=== PATIENT | male | born 1955 | race African-American/Black ===

== ENCOUNTER 2018-11-10 16:34 | Inpatient (IN) | payer OTHER ==
[~2018-11-10] VITALS: Ht 188 cm; Wt 89.8 kg
[~2018-11-10 16:34] MED LIST: AMLODIPINE BESY10 MG PO; ARICEPT 5 MG TAB5 MG PO; ASPIR 8181 MG PO; BUSPIRONE HCL10 MG PO; GEODON20 M1 IM; HYDROCHLOROTH12.5 M1 PO; LIPITOR10 MG PO; LISINOPRIL40 MG PO; MIRALAX17 GM PO; RISPERDAL 1 MG T1 MG PO; SEROQUEL 50 MG50 MG PO; VITAMIN B122500 MC1 PO; VITAMIN D3400 UNIT PO
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
[2018-11-10 21:52] VITALS: BP 94/55
[2018-11-11 03:46] VITALS: BP 94/55
--- NOTE | 2018-11-11 04:20 | NUR ---
RECEIVED REPORT FROM OFFGOING DAY NURSE, ASSUMED CARE @ 19:30. REFUSING VS AND COMBATITIVE WHEN REDIRECTED OUT OF OTHER PATIENTS ROOMS. NEW ORDER FOR 1:[address] CLEMETN. ORDER FOR IM THORAZINE 25 MG. FOLLOW UP VS 94/55 80 18 97.8 96% @ 22:15.
--- NOTE | 2018-11-11 06:50 | NUR ---
SLEPT 6.4 HOURS
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
[2018-11-11 23:25] VITALS: BP 103/64
[2018-11-12 09:51] VITALS: BP 116/70
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
--- NOTE | 2018-11-12 11:43 | NUR ---
HE IS ALERT AND UNKNOW ORIENTATION DUE TO HIS BEHAVIORS, HE IS AMBULATORY AND HAS BEEN WALKING THE HALLS, HE IS PRETTY MUCH ONOT RESPONDING VERBALLY, HE DOES ANSWER WHEN HIS ATTENTION IS CAPTURED, VERY SOFT WHISPER WHEN ASKED IN PAIN HE STATED NO, ASKED IF HE WAS HUNGRY HE STATED YES, AND WAS ESCORTED TO THE TABLE WHEN HE ATE HIS FOOD WITH HIS FINGERS, HE HAS EXIBITED NO AGGRESSIVE BEHAVIORS THIS A.M., CURRENTLY IN BED SLEEPING, HE DID TAKE ALL MORNING MEDS CRUSHED IN PUDDING. CONTINUE TO MONITOR FOR BEHAVIORS AND SAFETY, HE IS 1:1 OBSERVATION WHILE AWAKE.
[2018-11-12 19:59] VITALS: BP 122/71
[2018-11-13 00:36] VITALS: BP 122/71
--- NOTE | 2018-11-13 03:34 | NUR ---
PT OUT IN DAYROOM, WANDERING AND INVASIVE WITH OTHER PTS. NEEDS 1:1 OBSERVATION WHILE AWAKE. TOOK HS MEDS CRUSHED IN JELLY, FOLLOWED WITH WATER. SLEPT WELL UNTIL 314, INCONTINENT OF URINE. ASSISTED WITH SHOWER, AND LINEN CHANGED. NON VERBAL, BUT IS REDIRECTABLE. AFTER SHOWER, RETURNED TO BED AND IS CURRENTLY RESTING QUIETLY.
[2018-11-13 11:25] VITALS: BP 100/67
--- NOTE | 2018-11-13 11:27 | NUR ---
SPENDS MOST OF AM PACING IN DAYROOM OR HALLWAYS-WILL OCCASSIONALLY SAY 0NE OR TWO WORDS OTHERWISE IS NON-VERBAL. DOES BECOME AGITATED WITH ATTEMPTS TO GET BP AND TO CHANGE BRIEF HE WILL GRAB STAFFS HANDS AND SQUEEZE OR FORCABLY TAKE HOLD OF STAFFS ARM AND REFUSE TO LET GO. BP INITALLY THIS AM DOCUMENTED 170/100 PRIOR TO BP MEDS AND PT WAS RESISITNG-FLEXING ARM,MOVING ARM. AFTER AM MEDS BP RECHECK AT APPROX 1015 AND BP IS 100/64 P 93
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
[2018-11-14 09:53] VITALS: BP 116/60
--- NOTE | 2018-11-15 05:02 | NUR ---
Care assumed of patient at 1915: Patient resting in bed at start of shift. Patient laying in bed quietly with 1:1 sitter at bedside. Patient easily arousable. Patient looks up at nurse, smiles, nods head. No aggression or agitation observed this shift. Patient declined HS snack. Patient drank 240cc water with HS medication crushed in pudding. Patient non-verbal at this time. Hx: CVA with left sided hemiparesis. Incontinent of bladder. Requires total assist with toileting needs. Patient alert to name. Patient appeared to be resistive initially when provided his HS medication. Education provided regarding medication, then patient accepted medication without difficulty. Patient has been resting quietly in bed with no s/s of distress observed or reported this shift.
--- NOTE | 2018-11-15 13:37 | NUR ---
APPROACHED WITH AM MEDICATIONS AT APPROX. 1000 -MEDS CRUSHED AND IN PUDDING-PT REFUSES TO OPEN MOUTH OR SPITS THEM BACK OUT AT THIS NURSE. NON-VERBAL. ON 1;1 AMBULATED TO DAYROOM AND PICKED UP A CUP OF WATER AND THREW IT ON OTHER PATIENTS IN THE DINING ROOM-RESISITVE WITH GOPING TO ROOM. THORAZINE 25MG GIVEN IM IN LVG AREA 2WITH ASSISTANCE OF SECURITY
--- NOTE | 2018-11-16 05:01 | NUR ---
ASSUMED CARE OF PATIENT AT APPROXIMATELY 1915. THIS NURSE HAD VERY LITTLE INTERACTION WITH PATIENT, SOON THIS NURSE ASSUMED CARE PATIENT WENT TO HIS ROOM AND LAYED DOWN AND CLOSED HIS EYES. HE DID NOT APPEAR TO BE IN DISTRESS, NO FACIAL GRIMACING OBSERVED, REACTED TO TOUCH, EYES OPENED SPONTANEOUSLY TO THIS WRITERS SPEECH. CONTINUED TO MONITOR THROUGHOUT SHIFT WITH NO S/S OF DISTRESS.
[2018-11-16 07:45] VITALS: BP 110/68
[2018-11-16 10:29] VITALS: BP 110/68
--- NOTE | 2018-11-16 14:12 | NUR ---
PER REPORT PATIENT WAS SLEEPING, AND AT ABOUT 1335HRS, [facility] REPORTS THAT PATIENT EYES WAS ROLLING BACK TO HIS HEAD, AND PATIENT DROOLING . BLOOD PRESSURE TAKEN WITH RESULT OF 70/50. DR. CLEMENT PRESENT, CALLED DR. STARK, ORDER FOR SODIUM CHLORIDE 500 BOLUS NOTED, ATTEMPT X 2 TO START IV FAILED DUE TO PATIENT RESISTING IV ACCESS. IV TEAM GAINED ACCESS TO RIGHT ARM. AFTER RESTRAINT APPLIED. IV INFUSING AT 100ML/HRS. BLOOD PRESSURE RECHECKED AT 1415 HOURS WITH RESULT 89/60. SOFT RESTRAINT IN PLACE TOO STELLA UPPER EXTREMITY FOR IV FLUID INFUSION. PATIENT CURRENTLY IN SLEEPING, STAFF SITTING AT BED SIDE, WILL MONITOR FOR SAFETY.
[2018-11-16 19:51] VITALS: BP 128/80
--- NOTE | 2018-11-17 00:52 | NUR ---
Care assumed of patient at 1915: Patient alert and oriented to person only. Patient primarily non-verbal, mumbles at times. Patient remains 1:1 for safety of patient and peers. Patient has been wandering about the unit and in other peer rooms. Patient requiring frequent re-directions. No s/s of pain or discomfort observed. Patient took HS medication crushed with pudding without difficulty. Patient ate 100% snack with staff assist. Patient incontinent of bladder. Resistant on staff assist with ADL completion. Patient grabbed staff and started to pinch staff once when trying to be directed to his room. Another staff member stepped in which was successful in helping complete toileting needs. Patient was attempting to pick up attendant something from the floor a couple times which was not visible by staff. Appears to be having visual hallucinations. Patient had more difficulty falling asleep this evening than previous 2 nights. BP has remained stable. Fluids encouraged.
[2018-11-17 07:58] VITALS: BP 132/81
--- NOTE | 2018-11-17 12:33 | NUR ---
Date of Admission: 11/10/18 Date of Activity Therapy Assessment: 11/13/18 Activity Goal: Decrease wandering/increase stimulation Initial Goal: 1 Group activity/day or 1:1 as needed Weekly progress towards goal: Did not achieve goals Group participation level: None Behaviors observed: Patient has been on one to one monitoring since admission d/t aggressive behaviors and poor boundaries in the milieu. Patient tolerated one to one activity on 11/17. Exhibits flat affect and poor direction following. Plan: Offer one to one activities daily.
--- NOTE | 2018-11-17 13:42 | NUR ---
HAS BEEN AMBULATING IN HALLWAYUS AND IN DAYROOM THIS AM-DID APPROACH FEMALE PEER IN DAYROOM AND REACH FOR HER WITH ANGRY FACIAL EXPRESSION BUT STAFF WERE ABLE TO INTERVENE BEFORE HE REACHED PATIENT
[2018-11-17 19:31] VITALS: BP 105/67
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
[2018-11-18 09:16] VITALS: BP 131/85
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
[2018-11-19 09:00] VITALS: BP 133/88
--- NOTE | 2018-11-19 17:06 | NUR ---
UP PACING THE HALLS, HE STILL IS COMBATIVE WHEN ATTEMPTING TO PROVIDE CARES, HE IS INCONTINENT OF BOTH BOWEL AND BLADDER, ALTHOUGH HE WAS TAKEN AND USED THE COMMODE FOR A BM TODAY, HE WAS GOING TO SIT DOWN FOR BREAKFAST AND SAT ON THE EDGE AND DID NOT GET SET AND SLIPPED OFF THE CHAIR LANDING ON THE FLOOR ON HIS BUTTOCKS, HE GOT UP AND NO SIGN OF INJURY, AND PHYSICIAN WAS NOTIFIED, HE IS COOPERATIVE WITH MEALS AND MEDICATIONS TODAY, HAS NOT REQUIRED PRN MEDICATIONS. CONTINUE TO MONITOR HIS BEHAVIORS AND FOR SAFETY.
[2018-11-20 00:38] VITALS: BP 111/73
--- NOTE | 2018-11-20 03:35 | NUR ---
PATIENT GIVEN PRN CHLORPROMAZINE 25MG IM FOR SEVERE AGITATION AT 1999 LAST NIGHT. PATIENT CONTINUES TO PACE BUT WAS ENTERING OTHER PATIENT'S ROOMS, SQUEEZING CAREGIVER'S HANDS AND TRYING TO BREAK FINGERS OF STAFF. AGITATED AND SWINGS AT OTHERS WHEN TRYING TO WORK WITH HIM OR REDIRECT HIM. PATIENT SLEPT FOR A FEW HOURS AND IS NOW BACK UP AND DOING THE SAME THINGS. HE IS NOT REDIRECTABLE AND IS PACING AND TRYING TO PULL HIS PANTS DOWN IN DINING ROOM. STAFF AND ME WALKED HIM TO HIS ROOM TO HAVE HIM USE THE RESTROOM BUT PATIENT REFUSED TO GO INTO HIS ROOM OR BATHROOM. PULLED HIS PANTS UP AND HE CONTINUED TO PACE AND REACHES OUT TO GRAB MY HAND AND THEN SQUEEZES IT AND TWISTING HAND. I WAS ABLE TO BREAK AWAY. HE HAS INTENSE ANGER GLEAR HE WALKS AROUND. DISTURBING PATIENT'S IN THE DR BY TRYING TO PULL BLANKETS OFF OF THEM AND TAKING THEIR BELONGINGS. SCARING OTHER FEMALE PATIENTS. PATIENT REMAINS 1:1 WHILE AWAKE. CHLORPROMAZINE 25MG IM GIVEN AGAIN 329.
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
--- NOTE | 2018-11-20 08:37 | NUR ---
PT GRABBING AT STAFF AND PULLING STAFF DOWN TO FLOOR, PT SITTING ON FLOOR. PT ASSISTED BACK UP TO STANDING AND PUT IN RECLINER. ADM CHLORPROMAZINE 25MG IM FOR AGITATION.
[2018-11-20 08:45] VITALS: BP 134/79
--- NOTE | 2018-11-20 08:53 | NUR ---
WHEN AWAKE PT WONDERS IN HALLS OR SITS IN RECLINER CHAIR. PT NEEDS ASSIST WITH ADL'S WHEN TOILETING. PT SLEEPING WITH HEAD DOWN IN DINNING ROOM. SITTER 1:1 CARE WHILE AWAKE. PT LUNGS CLEAR. ABD ROUND WITH BOWEL SOUNDS.
[2018-11-20 09:38] VITALS: BP 134/79
--- NOTE | 2018-11-20 10:43 | NUR ---
Assess due to length of stay, pt admit to [facility] with vascular dementia, combativess. Hx CVA in 2014. Tolerating diet, provided with finger foods, eating 50-100%. Overweight status, BMI 28.9 and wt up 2 lb from admit. No new nutrition interventions. Low nutrition risk
--- NOTE | 2018-11-20 17:57 | NUR ---
PT HAS BEEN COOROPERATIVE THIS AFTERNOON. PT LAYING IN RECLINER WHILE EATING DINNER. PT NON-VERBAL. FACE SEEMS RELAXED LATELY.
[2018-11-20 20:53] VITALS: BP 139/89
--- NOTE | 2018-11-21 02:50 | NUR ---
WANDERING AROUND UNIT ON 1:1 OBSERVATION. CONFUSED BUT DIRECTABLE. ESCORTED TO ROOM FOLLOWING HS SNACKS. SLEPT UNTIL 0100. UP IN DAYROOM, SITTING AT TABLE, AND DOZING PERIODICALLY. INCONTINENT X1 DURING THE NIGHT. CHANGED BUT DID NOT WANT TO RETURN TO ROOM.
--- NOTE | 2018-11-21 08:30 | NUR ---
PT UP SITTING IN DINNING ROOM. PT HAS 1:1 CARE FOR SAFETY. PT ABLE TO FEED SELF WITH FINGER FOODS. PT NON-VERBAL. FLAT AFFECT IN FACE. PT LUNGS CLEAR. PT HAS BRIEF ON. WHEN AWAKE PT LIKES TO WALK AROUND THE UNIT AND HOLD HANDS WITH STAFF.
[2018-11-21 20:06] VITALS: BP 143/82
--- NOTE | 2018-11-22 00:08 | NUR ---
Care of patient assumed at 1915: Patient alert and oriented to person. Confused and forgetful. Patient sitting in recliner at start of shift with 1:1 sitter next to him. Patient ate 100% HS snack. Mumbled speech noted with some clear, audible speech. Patient took HS medication crushed without difficulty. Patient pleasant and cooperative during nursing assessment. No s/s of pain or discomfort. No s/s of AH/VH, delusions or paranoia observed. Patient assisted to bed with staff assist x3. Patient had an incontinent episode of bladder. Patient provided max assist to transfer to his bed. Patient did not want his soiled brief and pants removed. Patient attempted to grab pants so they could not be changed. Patient was able to be re-directed then he assisted by standing and allowing staff to change clothing without any verbal or physical aggression. Patient was then assisted to lay down in bed. He then stated "good night" and was able to fall asleep without any difficulty.
[2018-11-22 09:05] VITALS: BP 150/77
--- NOTE | 2018-11-22 11:02 | NUR ---
TRIALED OFF OF 1;1 THIS AM AND APPROX 15 MINUTES AFTER BEING OFF 1;1 GRABBED A FEMALE PEER BY THE NECK FOR NO APPARENT REASON IN DAYROOM- STAFF SITTING WITH FEMALE PEER INTERVENED IMMEDIATLY PREVENTING INJURY-REQUIRES ASSIST OF THREE TO 4 STAFF TO CHANGE BRIEF WHEN INCONTINENT. VS WNL
[2018-11-22 20:44] VITALS: BP 146/73
[2018-11-23 01:08] VITALS: BP 146/73
--- NOTE | 2018-11-23 02:31 | NUR ---
PATIENT SAT UP IN DINING ROOM RECLINER THIS EVENING. AT ONE POINT HE DOZED OFF AND AWOKE SUDDENLY AND WAS ANGRY AND PUNCHING AND COMBATIVE. CHLORPROMETHAZINE PRN IM GIVEN TO PATIENT. PATIENT HAD EARLIER TAKEN HIS HS MEDS CRUSHED IN [place]URT WITHOUT PROBLEM. PATIENT CALMED BACK DOWN ONCE THE PRN WAS ON BOARD AND THEN BECAME LOUD AND COMBATIVE WHEN PUTTING HIM IN BED. PATIENT REMAINS 1:1 WHILE AWAKE. HE HAS BEEN NONVERBAL TONIGHT. PATIENT IS SLEEPING AT THIS TIME. FREQUENT ROUNDING TO CHECK ON HIM. BED IN LOW POSITION AND BED ALARM ON.
[2018-11-23 11:04] LABS: HEMOGLOBIN 12.3 gm/dL (14.0-18.0); MCH 29.4 pg (26.0-34.0); MCHC 31.7 g/dL (28.0-37.0); MCV 92.9 fL (80.0-100.0); RBC 4.19 mil/uL (4.50-6.00); RDW 14.7 % (10.5-14.5); WBC 7.7 thou/uL (4.0-11.0)
[2018-11-23 11:22] LABS: ALBUMIN 3.3 g/dL (3.4-5.0); CALCIUM 9.1 mg/dL (8.5-10.1); CREATININE 0.8 mg/dL (0.7-1.3); MAGNESIUM 1.8 mg/dL (1.8-2.4); POTASSIUM 3.7 mmol/L (3.5-5.1); TOTAL BILIRUBIN 0.3 mg/dL (<0.1-1.0); TOTAL PROTEIN 6.6 g/dL (6.4-8.2)
--- NOTE | 2018-11-23 12:55 | NUR ---
HAS REMAINED ON 1;1 SO FAR THIS RCACT-HSV-[id number]. STRIKES OUT WITH CARES,BRIEF CHANGE ETC. AMBULATES SHORT DISTANCES IN HALLWAYS AND TOLERATES THIS ACTIVITY WELL WITHOUT ASSISTIVE DEVICES.
--- NOTE | 2018-11-24 00:34 | NUR ---
Care assumed of patient at 1915: Patient seated in recliner at start of shift. Patient is no longer on 1:1 while awake. Staff monitor q12 minutes and PRN for safety. Patient compliant with nursing assessment. Alert and oriented to name. Confusion and forgetfulness noted. No s/s of AH/VH, delusional or paranoia observed. Took HS medication crushed without difficulty. Declined HS snack. No s/s of pain or discomfort observed. Patient somewhat resistant when be assisted to bed. No physical or verbal aggression observed at this time. Patient has been pleasant and cooperative. Patient resting quietly in bed at this time.
[2018-11-24 09:15] LABS: HEMATOCRIT 40.6 % (42.0-52.0); MCH 29.8 pg (26.0-34.0); MCV 92.9 fL (80.0-100.0); RBC 4.38 mil/uL (4.50-6.00); RDW 14.8 % (10.5-14.5); WBC 8.7 thou/uL (4.0-11.0)
[2018-11-24 09:29] LABS: CALCIUM 9.5 mg/dL (8.5-10.1); CREATININE 0.8 mg/dL (0.7-1.3); POTASSIUM 3.5 mmol/L (3.5-5.1)
[2018-11-24 11:01] VITALS: BP 160/87
[2018-11-24 11:36] VITALS: BP 160/87
--- NOTE | 2018-11-24 12:56 | NUR ---
0715 report from overnight staff. 07 patient in wheel chair by staff, patient appetite good. Patient took medication without incident. Patient did not participate in group, patient non verbal due to history of cva. Patient had no interaction with other patients. Patient did not display any aggression at this time. Patient takes medication crushed in applesauce. Patient tried to get out of chair slow motion. Patient tried to pull down pant in day room, patient redirected not to do this.
--- NOTE | 2018-11-24 15:27 | NUR ---
Date of Admission: 11/10/18 Date of Activity Therapy Assessment: 11/13/18 Activity Goal: Decrease wandering Initial Goal: 1 Individual activity/day Weekly progress towards goal: Did not achieve goals Group participation level: None Behaviors observed: Patient no longer has a 1:1 sitter but does not have the focus/attention span to participate in structured groups. Patient sleeps during most 1:1 attempts. Plan: Continue to offer 1:1 activities daily.
--- NOTE | 2018-11-24 15:38 | NUR ---
SW called and spoke to admissions at [facility] of [place] [phone] amnd they agreed to come out and evaluate this pt early next week for possible placement
[2018-11-24 19:38] VITALS: BP 152/97
--- NOTE | 2018-11-25 00:04 | NUR ---
Care assumed of patient at 1915: Patient alert and oriented to person. Patient sitting in recliner at start of shift. Patient having mumbled speech which is baseline for this patient. Patient confused and forgetful. Patient took HS medication crushed without difficulty. Ate 100% HS snack. No outbursts or aggression observed. Patient walked to his room to assist him get ready for bed. Patient somewhat resistive with toileting hygiene. Staff x2 assist used for safety. No s/s of AH/VH, paranoia or delusional behaviors observed. Patient sat from recliner and watched other people. Patient compliant with nursing assessment. Patient touched nurses hand at one point and wanted to hold hands for a couple minutes. When nurse stated she needed to go, patient let go and stated "bye". Patient was able to fall asleep without any difficulties and has been resting quietly since.
[2018-11-25 06:44] LABS: HEMATOCRIT 42.2 % (42.0-52.0); HEMOGLOBIN 13.8 gm/dL (14.0-18.0); MCH 29.7 pg (26.0-34.0); MCHC 32.6 g/dL (28.0-37.0); MCV 91.3 fL (80.0-100.0); RBC 4.63 mil/uL (4.50-6.00); RDW 14.3 % (10.5-14.5); WBC 10.9 thou/uL (4.0-11.0)
[2018-11-25 06:57] LABS: CALCIUM 9.3 mg/dL (8.5-10.1); CREATININE 0.8 mg/dL (0.7-1.3); POTASSIUM 3.5 mmol/L (3.5-5.1)
[2018-11-25 09:31] VITALS: BP 138/91
--- NOTE | 2018-11-25 15:26 | NUR ---
JOHN called and spoek with admissions at [facility] and they will be coming out on Tuesday to eval this pt. [phone], and will send updates on Tuesday PM [phone].
--- NOTE | 2018-11-25 15:30 | NUR ---
JOHN called and spoke with noman- and she is expecting JOHN to find him a place to d/c to.
--- NOTE | 2018-11-25 15:46 | NUR ---
EPISODES OF RESTLESSNESS THROUGHOUT SHIFT-ATEMPTING TO GET UP FROM CHAIR AND OR WC WITHOUT ASSIST. IS OBSERVERED TO BE MORE ATAXIC THIS AM-LEANING BACKWARD-ALSO WILL AMBULATE SHORT DISTANCE WITH NURSING STAFF AND THEN ABRUPTLY ATTEMPT TO SIT DOWN WITH NO CHAIR BEHIND HIM AND NO WARNING. REQUIRES ASSIST OF 2-3 STAFF TO STAND BACK UPRIGHT.NON-VERBAL. WILL EAT IF FED BY STAFF- TAKES MEDS CRUSHED AND IN YOGURT- NO NOTED OR REPORTED PAIN/DISCOMFORT-FACIAL GRIMACING ETC. DOES ATTEMPT TO STRIKE OUT AT STAFF WITH BRIEF CHANGE/PERINEAL CARE.
[2018-11-25 20:40] VITALS: BP 130/79
[2018-11-26 00:06] VITALS: BP 130/79
--- NOTE | 2018-11-26 04:32 | NUR ---
PT UP IN DAYROMM EARLY IN THE SHIFT. DROWSY, BUT ALLOWED STAFF TO ASSESS, AND TAKE VS. TOOK HS MEDS AFTER SNACKS. BECAME SOMEWHAT COMCATIVE WHEN PREPARED FOR BED. TOOK 3 STAFF TO GET HIM TO BED. ONCE SETTLED, PT HAS SLEPT WELL THROUGH THE NIGHT TO THIS POINT IN THE AM.
[2018-11-26 07:00] VITALS: BP 120/75
--- NOTE | 2018-11-26 17:17 | NUR ---
PT A&O TO SELF. AMBULATES WITH SLOW UNSTEADY GAIT. IMPULSIVE WILL NOT SIT IN HIS CHAIR FOR A LENGTH OF TIME BUT THEN WILL SIT AND FALL ASLEEP FOR PERIODS OF TIME. CONFUSED THOUGH IS BEING BEING MORE VERBAL THAN WHEN HE ARRIVED. PT APPEARED DROWSEY MOST OF THE DAY. EATS 50% OF MEALS OR MORE.
[2018-11-26 20:46] VITALS: BP 117/80
[2018-11-26 23:07] VITALS: BP 117/80
--- NOTE | 2018-11-27 04:20 | NUR ---
PT OUT IN DAY ROOM. QUIET AND COOPERATIVE. ESCORTED TO BED AFTER HS SNACKS AND MEDS. TOOK MEDS CRUSHED WITH PUDDING W/O PROBLEM. HAS SLEPT WELL THROUGH THE NIGHT TO THIS POINT.
[2018-11-27 08:01] VITALS: BP 157/95
[2018-11-27 12:58] VITALS: BP 122/72
--- NOTE | 2018-11-27 12:59 | NUR ---
REMAINS NON-VERBAL SO FAR THIS SHIFT-DID UNDO LAP BELT AND WAS FOUND WALKING ON OWN IN DINING ROOM- OBSERVED TO BE ATAXIC-STUMBLING WITH BACKWARD LEANING STANCE/POSTURE-ASSISTED BACK TO RECLINER WITH SBA X 1 AND WAS REISSITIVE WITH THIS PULLING AWAY FROM STAFF-TUGGING ON STAFF ARMS,ANGRY FACIAL EXPRESSION-HOWEVER WITH MULTIPLE ATTEMPTS,VERBAL AND PHYSICAL QUEING DID EVENTUALLY COMPLY. INITITAL BP ELEVATED THIS AM DOCUMENTED 157/95-PARISH RECHECK BY THIS RN AFTER AM MEDS IS 122/72-SMALL SOFT BM-RESISITVE WITH PERINEAL CARE BUT NO ACTUAL STRIKING OUT
--- NOTE | 2018-11-27 13:09 | NUR ---
followup 11/27: remains on finger foods, regular diet. Eating 25-85% of meals. Nonverbal. Wt is down 5 lb over 2 weeks/2% which is not significant but continue to monitor as intake is variable. Remains low nutrition risk
--- NOTE | 2018-11-27 17:55 | NUR ---
JOHN recieved a notice that [facility] would not be reconsidering this pt.
[2018-11-27 19:43] VITALS: BP 126/75
[2018-11-28 01:11] VITALS: BP 126/75
--- NOTE | 2018-11-28 01:16 | NUR ---
PATIENT SAT UP IN RECLINER IN DAYROOM THIS EVENING. HE WOULD NOT EAT HIS SUPPER AND REFUSED AN HS SNACK. PATIENT HAS LAP TERESO ON. HE IS CALM, COOPERATIVE, AND SLEEPY. PATIENT WAS TAKEN TO BED TO SLEEP LATER THIS EVENING. HE IS INCONTINENT AND IS CHECKED Q 2 HOURS. PATIENT DRY AT THIS POINT. BED IN LOW POSITION AND BED ALARM ON. DENIES PAIN. WILL CONTINUE TO MONITOR.
[2018-11-28 09:10] VITALS: BP 124/67
--- NOTE | 2018-11-28 13:31 | NUR ---
INCREASE IN RESTLESSNESS THIS AM HAS BEEN ATTEMPTING TO GET UP AND WALK ON OWN SEVERAL TIMES STUMBLING AND ALMOST FALLING IN DAYROOM- LEANING BACKWARD AND WILL ATTEMPT TO SIT WITH NO CHAIR BEHIND HIM. INCREASED VERBALIZation but STATEMENTS ARE NON-GOAL DIRECTED-WORD SALAD
[2018-11-28 20:15] VITALS: BP 184/114
[2018-11-29 01:10] VITALS: BP 148/82
--- NOTE | 2018-11-29 01:34 | NUR ---
PATIENT UP IN THE DINING ROOM SITTING IN RECLINER. PATIENT IS COOPERATIVE. HE IS A LITTLE MORE VOCAL TODAY AND DID SAY HE WANTED ICECREAM FOR HIS SNACK. HE DENIES PAIN. HIS BP WAS SHOWING HIGH NUMBERS AT 184 SYSTOLIC. RECHECKED HIS BP AND TEMP AND BP IS NOW DOWN TO 130/74 AND TEMP IS 98.8. PATIENT IS A HEAVY ASSIST OF 3 PEOPLE. WENT TO PUT PATIENT DOWN FOR BED AND HE WAS ADAMANT THAT HE WANTED TO STAY UP. PATIENT IS STILL SITTING UP IN RECLINER IN THE DINING ROOM. HE DENIES PAIN AND HAS HAD BRIEFS CHANGED. PATIENT IS A/O TO SELF. HE IS LESS SLEEPY WITH MED ADJUSTMENTS. PATIENT IS PULLING HIMSELF BACKWARDS WHEN HE STANDS MORE NOW AND NOT KEEPING HIS BALANCE WELL. HE HAD ICECREAM FOR HS SNACK TONIGHT. HE TAKES HIS PILLS CRUSHED IN ICECREAM. PATIENT PLEASANT AND COOPERATIVE.
--- NOTE | 2018-11-29 15:56 | NUR ---
Care assumed of patient at 0715: Patient alert to name. Disoriented to current place, time and situation. Patient confused and forgetful. Patient has slurred and mumbled speech. No s/s of pain or discomfort observed. Patient seated in recliner throughout the shift. Requires max to total assist with toileting, eating and ADL completion. Patient took medication crushed without difficulty. Patient was up attempting to ambulating with PT. Patient continues to lean back and has difficulty initiating stepping with his left foot. Patient incontinent of bowel and bladder. No aggression or agitation observed. No s/s of delusional or paranoia behaviors. Patient has been calm and sleepy this shift.
--- NOTE | 2018-11-29 16:33 | NUR ---
SW sent new referrals for placement to : [facility], [facility], [place] , [facility], and [facility]. [facility] is unable to accept due to payor source.
[2018-11-29 16:36] VITALS: BP 141/99
[2018-11-29 19:45] VITALS: BP 111/72
[2018-11-30 00:57] VITALS: BP 111/72
--- NOTE | 2018-11-30 01:01 | NUR ---
PATIENT UP IN DINING ROOM THIS EVENING BEFORE BED. PATIENT TOOK MEDS WITH APPLESAUCE. PATIENT WAS FED ICECREAM AND APPLESAUCE FOR HS SNACK. PATIENT WAS WHEELED TO BED. HE IS A HEAVY ASSIST OF 3 TO 4. HE DOES NOT HELP WITH TRANSFERS. PATIENT WAS INCONTINENT WHEN GETTING READY FOR BED AND PATIENT CLEANED AND NEW LINEN CHANGE OF BED. PATIENT NOT TALKING MUCH TONIGHT. HE WAS GIVEN TRAZADONE 25 MG THAT APPEARS TO BE EFFECTIVE. PATIENT DENIES PAIN. PATIENT IN LOW BED WITH BED ALARM ON AND ROUTINE CHECKS.
[2018-11-30 09:00] VITALS: BP 162/99
--- NOTE | 2018-11-30 16:00 | NUR ---
SW recieved notice that [facility], and [facility] in declining this pt
[2018-11-30 18:00] VITALS: BP 121/71
--- NOTE | 2018-11-30 19:18 | NUR ---
PT ALERT TO SELF ONLY. NON VERBAL. PT UP SITTING IN THE DINNING ROOM IN THE CHAIR FOR MOST OF THE SHIFT. PT CALM AND COOPERATIVE. BP ELEVATED THIS MORNING MEDICATIONS GIVEN BP NOW 121/71. PT TOLERATES MEDS AND MEALS. PT DOES NOT APPEAR TO BE IN ANY PAIN. WILL CONTINUE TO MONITOR.
[2018-11-30 21:07] VITALS: BP 121/87
--- NOTE | 2018-12-01 07:19 | NUR ---
The pt. was med.compliant last nite, slept well tonite. At bedtime he was an assist of 2, but this morning was notably proud that he stood up with standby assist when getting out of bed,with a bright affect. He was not aggressive and used fall prevention measures.
--- NOTE | 2018-12-01 08:00 | NUR ---
Assumed care of patient this am from manufacturing supervisor 2nd shift. Patient calm and content. Patient sitting in reclining chair for assessment. Patient vital signs stable. Breath sounds clear and diminished in the bases. Heart tones present s1 and s2. Bowel sounds present, hypo. Patient took am medications crushed in apple sauce. Patient adherent with scheduled medications. Patient shaved this afternoon.
[2018-12-01 08:09] VITALS: BP 159/93
[2018-12-01 09:30] VITALS: BP 159/93
--- NOTE | 2018-12-01 14:01 | NUR ---
Date of Admission: 11/10/18 Date of Activity Therapy Assessment: 11/13/18 Activity Goal: 1 group or one to one Initial Goal: Decrease wandering behaviors Weekly progress towards goal: Did not achieve goals Group participation level: None Behaviors observed: Patient has exhibited aggressive or wandering behaviors since previous note entry. Patient is often drowsy during group times and though present at times, does not participate actively. Plan: No change towards goal
--- NOTE | 2018-12-01 16:08 | NUR ---
Sw sent referrals to [facility] ( was denied there) RW denied placement too , [facility] per family request, and meft a VM at [facility] to f/u.
[2018-12-01 19:29] VITALS: BP 195/105
[2018-12-02 01:36] VITALS: BP 195/105
--- NOTE | 2018-12-02 03:58 | NUR ---
PT RESTING IN RECLINER AT [facility] OF SHIFT. AFTER SNACKS TOOK HS MEDS , CRUSHED WITH PUDDING, W/O PROBLEM. ESCORTED TO BED,BED CLOTHING CHANGED AND PT TUCKED INTO BED. RESTLESS FOR A SHORT PERIOD, BUT WENT TO SLEEP,AND HAS SLEPT WELL W/O INCIDENT THROUGH THE NIGHT TO THIS POINT.
[2018-12-02 07:07] VITALS: BP 139/78
--- NOTE | 2018-12-02 18:18 | NUR ---
PATIENT ORIENTED TO SELF AND IN RECLINER CHAIR MOST OF THE DAY IN DINING AREA. PATIENT NEEDS ASSISTANCE TO FEEDING. SPOUSE CALLED TO CHECK ON PATIENT. PATIENT MOSTLY NON-VERBAL AND DOESN'T INTERACT WITH OTHER PATIENTS OR STAFF.
[2018-12-02 19:59] VITALS: BP 141/91
--- NOTE | 2018-12-03 04:52 | NUR ---
1909-Report received from day shift nurse and care assumed. Kaiden was sitting in the day area, was med.compliant, then assisted to bed and has slept well this night.
[2018-12-03 07:53] VITALS: BP 144/84
--- NOTE | 2018-12-03 14:07 | NUR ---
Has been in recliner chair most of morning, he is very lethargic, somwhat arousable, he has refused to eat any meal so far except for maybe 1 or 2 bites, he has not had any fluids today either, he did attempt to stand and is unable to stand by himself, he is max assist with standing and ambulating, when attempting to get him to his room he just sat on the floor, we did get him up and finished the trip, he is incontinent of bowel and bladder, was changed after sitting on toilet, I did notice alot of excessive tongue rolling and movement, we placed him in bed where he is currently sleeping.
[2018-12-03 19:55] VITALS: BP 185/97
--- NOTE | 2018-12-04 03:21 | NUR ---
PATIENT ASSESSED AND IS ALERT X 1. HAS BEEN LETHARGIC ON RN ARRIVAL DURING ASSESSMENT. SITTING IN CHAIR IN DINNING ROOM. DOES NOT TALK MUCH. UNABLE TO WALK AND STAND, IS A 3 PERSON MAX ASSIST. MED CRUSHED AND PATIENT TAKEN THEM WELL. PLACED TO BED FOR HS. INCONT OF BOWEL AND BLADDER. HAD A INCONT LARGE BM. SKIN CONDITION GOOD. NEEDS HELP IN FEDING AND PREPARING HIS TRAY. SKIN COLOR WNL. DOES NOT APPEAR IN PAIN. SITS IN W/C MOST OF THE TIME . BED ALARM AND CHAIR ALARM IN USE. PATIENT REFUSED TO EAT TODAY, DIET IS [facility] SOFT FOOD. CONT PLANOF CARE. NO S/S OH AH/VH OBSERVED.
[2018-12-04 06:14] LABS: HEMATOCRIT 43.7 % (42.0-52.0); HEMOGLOBIN 14.1 gm/dL (14.0-18.0); MCH 29.8 pg (26.0-34.0); MCHC 32.2 g/dL (28.0-37.0); MCV 92.6 fL (80.0-100.0); RBC 4.72 mil/uL (4.50-6.00); RDW 14.8 % (10.5-14.5); WBC 13.4 thou/uL (4.0-11.0)
[2018-12-04 06:31] LABS: CALCIUM 9.3 mg/dL (8.5-10.1); CREATININE 0.9 mg/dL (0.7-1.3); POTASSIUM 3.5 mmol/L (3.5-5.1)
[2018-12-04 09:29] VITALS: BP 153/97
--- NOTE | 2018-12-04 16:31 | NUR ---
JOHN sent referrals to [facility] of [facility], and he was declined by them.
[2018-12-04 17:40] LABS: URINE BILIRUBIN NEGATIVE (Negative); URINE BLOOD 2+ (Negative); URINE CLARITY CLEAR; URINE COLOR YELLOW; URINE GLUCOSE-RANDOM* 2+ (Negative); URINE KETONES TRACE (Negative); URINE LEUKOCYTES-REFLEX NEGATIVE (Negative); URINE NITRITE-REFLEX NEGATIVE (Negative); URINE PROTEIN (DIPSTICK) TRACE (Negative); URINE SPECIFIC GRAVITY 1.025 (1.005-1.035)
[2018-12-04 18:01] LABS: CASTS None Seen /LPF (None Seen); CRYSTALS None Seen /LPF (None Seen); SQUAMOUS 0-3 Few /LPF (0-3)
[2018-12-04 18:02] LABS: BACTERIA-REFLEX 1-9 Few /HPF (None Seen); TRANSITIONAL EPITHEL CELL 0-3 Few /LPF (None Seen); URINE RBC 3-10 Few /HPF (0-2); URINE WBC-REFLEX 0-5 Rare /HPF (0-5)
--- NOTE | 2018-12-04 18:21 | NUR ---
PATIENT UP IN CHAIR IN DINING ROOM SITTING IN RECLINER TODAY. PATIENT DROWSY. PATIENT NOT EATING WELL OR CHEWING. NEW ORDERS FOR PUREED FOOD. PATIENT NEW ORDER FOR ST EVAL AND TREAT D/T COUGHING WHEN DRINKING THIN LIQUIDS. ABNORMAL LABS CALLED TO DR CLEMENT AND HOSPITALIST THRU DR Velasco SPOKE WITH FEMALE HOSPITALIST (UNSURE OF NAME) AND SHE STATES THAT PATIENT ABNORMAL LABS ARE SHOWING DEHYDRATION. UA DONE AND SENT TO LAB BY DR CLEMENT. AWAITING RESULTS. PATIENT'S DAUGHTER CAME TO VISIT HIM TODAY. PATIENT CONTINUES TO BE INCONTINENT. PATIENT DOES NEED TO BE FED. PATIENT RESTING IN BED AT THIS TIME. HIS APPETITE IS POOR AT ABOUT 25% FOR ALL MEALS. PATIENT CARE TECHNICIAN AWARE OF THIS.
[2018-12-04 19:15] VITALS: BP 175/93
--- NOTE | 2018-12-04 22:51 | NUR ---
ASSUMED CARE @ 19:15 ON 12/04/18. MEDS GIVEN CRUSHED IN PUDDING WITH NECTAR THICK BEVERAGE. WILL CONTINUE TO MONITOR Q 12 MINUTES FOR PATIENT SAFETY.
[2018-12-05 00:21] VITALS: BP 175/93
[2018-12-05 09:01] VITALS: BP 155/89
[2018-12-05 10:44] LABS: CALCIUM 9.7 mg/dL (8.5-10.1); CREATININE 1.1 mg/dL (0.7-1.3); POTASSIUM 3.7 mmol/L (3.5-5.1)
--- NOTE | 2018-12-05 13:13 | NUR ---
PATIENT HAS BEEN UP AND OUT ON THE UNIT SITTING IN A GERICHAIR MOST OF THE DAY. PATIENT WAS ASSISTED WITH MEALS BY STAFF, CONSUMED 100% OF BREAKFAST, REFUSED TO EAT LUNCH. PATIENT TOOK MORNING MEDICATION CRUSHED IN PUDDING WITHOUT DIFFICULTY. PATIENT IS UNABLE TO RESPOND APPROPRIATELY TO ASSESSMENT QUESTIONS DUE TO COGNITIVE IMPAIREMENT. PATIENT IS VERY CONFUSED. NO AGGRESION OR AGITATION NOTED. PATIENT TAKING INTERMITTENT NAP, WILL MONITOR FOR SAFETY.
[2018-12-05 21:25] VITALS: BP 151/93
[2018-12-05 22:21] VITALS: BP 138/82
--- NOTE | 2018-12-05 22:27 | NUR ---
PATIENT IN BED WITH HIS HEAD AT THE BOTTOM OF THE BED AND FEET AT THE TOP. PATIENT DOES NOT HELP IN TRANSFERRING OR WITH CARES. HE IS COMBATIVE WITH INCONTINENCE CARES AND REPOSITIONING. PATIENT IS ABLE TO TURN HIMSELF AND DOES BUT JUST DOES NOT HELP WHEN OTHERS ARE WORKING WITH HIM. PLACED HOB UP 45 DEGREE ANGLE. HE TOOK HIS MEDS CRUSHED IN PUDDING. PATIENT IS ALERT AND DID DRINK 120CC OF THICKENED WATER TONITE WITH HIS PUDDING. PATIENT'S TONGUE IS MOIST BUT DISCOLORED TO YELLOW/BROWN. UNSURE IF THIS IS OLD FOOD SITTING ON TONGUE OR FUNGAL INFECTION BEGINNING. PATIENT DOES HAVE A CHERIE ODOR TO HIM. HIS GLUCOSE LEVELS ARE UP ALSO TO 365. HOSPITALIST ARE AWARE OF THIS PER REPORT. SPOKE WITH DR ROSALINDA SHRESTHA YESTERDAY MORNING REGARDING HIS LABS. BED IN LOW POSITION AND ALARM ON. CONTINUING TO MONITOR. ENCOURAGED TO PUSH FLUIDS. BED IN LOW POSITION AND ALARM ON.
--- NOTE | 2018-12-06 03:54 | NUR ---
PATIENT SLEPT SOME IN BED BUT WAS RESTLESS AND MOVING ALOT. HE SAT UP ON HIS SIDE AND WAS TRYING TO GET LEGS OUT OF BED. GOT PATIENT BRIEF CHANGE AND UP IN RECLINER CHAIR TO MAIN DINING ROOM AT 0330. GAVE PATIENT THICKENED WATER TO DRINK AND HE DRANK 3 OF THEM SO FAR FOR TOTAL OF 360. PLUS I GAVE HIM 240 WITH HIS PILLS. HE IS HOLDING THE CUP TONITE AND GIVING IT TO HIMSELF. HE HAD NOT BEEN DOING THAT EARLIER IN THE EVENING. PATIENT SEEMS MORE ALERT. HE EVEN ASSISTED AT 0330 IN STANDING HIM UP. HE HAS NOT BEEN DOING THAT BEFORE. HE WAS DOING SOME MOVEMENTS WITH HIS MOUTH WHEN WE GOT HIM UP THAT LOOKED LIKE TARDIVE DYSKINESIA BUT AFTER SITTING UP AND DRINKING SOME WATER FOR A BIT THIS SEEMED TO GO AWAY. STILL MONITORING FOR IT. PATIENT IS SMILING A LITTLE MORE TONIGHT AND APPEARED HAPPY WHEN WE PRAISED HIM ON HIS STANDING WHEN WE ASSISTED HIM TO CHAIR. PATIENT CALM AND SITTING IN DINING ROOM FOR NOW.
[2018-12-06 08:00] VITALS: BP 144/84
--- NOTE | 2018-12-06 08:00 | NUR ---
Assumed care of patient this am from shift supervisor melting. Patient neat and relaxed laying in recliner. Patient was spitting his food out this am. Patient was adherent with medications crushed in applesauce for RN. Assessment-breath sounds clear and diminished in the bases. Bowel sounds present. Patient would answer simple questions occasionally but not consistently.
[2018-12-06 08:55] VITALS: BP 144/84
[2018-12-06 09:49] LABS: HEMATOCRIT 43.5 % (42.0-52.0); HEMOGLOBIN 13.9 gm/dL (14.0-18.0); MCH 29.7 pg (26.0-34.0); MCV 92.8 fL (80.0-100.0); RBC 4.68 mil/uL (4.50-6.00); WBC 12.6 thou/uL (4.0-11.0)
[2018-12-06 10:34] LABS: ABSOLUTE NEUTROPHILS 8.6 thou/uL (1.4-8.2)
[2018-12-06 10:35] LABS: PLATELET COUNT 179 thou/uL (150-400); PLATELET ESTIMATE NORMAL
[2018-12-06 20:31] VITALS: BP 155/89
--- NOTE | 2018-12-07 05:07 | NUR ---
1909-Report received from day shift nurse and care assumed. Kaiden was combative with ADL's in the evening in his bed where he was resting. He required 2 staff assist with ADL care. He was med. compliant then slept off and on in the nite, fidgety at times also but slept some hours. This morning he was assisted with his ADL's and up for the day in the recliner. He had a smile when standing up with assist for transfer. He answered questions this morning, smiling again, answered yes and no. He was not combative with cares except in the evening time as stated above.
[2018-12-07 07:53] VITALS: BP 123/76
--- NOTE | 2018-12-07 13:20 | NUR ---
DID TAKE AM MEDS CRUSHED AND IN PUDDING. LETHARGIC-RESTING FOR SHORT INTERVALS IN RECLINER IN DAYROOM SO FAR THIS SHIFT. INCONTINENT OF VERY LARGWE LOOSE STOOL-REQUIRED ASSIST OF 4 STAFF TO CHANGE BRIEF,PROVIDE PERINEAL CARE AND BARRIER CREAM. WAS A COMPLETE LIFT WHEN ASSISTED INTO BED.
--- NOTE | 2018-12-07 13:36 | NUR ---
HAS BEEN NON-VERBAL SO FAR THIS SHIFT-DID LAY DOWN IN PM -APPETITE POOR AND REQUIRES FEEDING-TAKES PO FLUIDS POORLY D/T SEDATION. DENIES C/O PAIN WHEN ASKED-WILL OPEN EYES TO VERBAL STIMULI-WILL OCCASSIONALLY FOLLOW VERBAL COMMANDS WHEN REPEATED MULTIPLE TIMES BUT RESPONSE TIME-MOVEMENTS VERY DELAYED/SLOW
--- NOTE | 2018-12-07 13:43 | NUR ---
SW sent referrals for pt to [facility], [facility], and [facility]. SW team will continue to follow pt during his stay.
[2018-12-07 19:42] VITALS: BP 165/75
--- NOTE | 2018-12-08 04:26 | NUR ---
ASSUMED CARE @ 19:15 ON 12/07/18, PT IN RECLINER, EYES CLOSED, RESPIRATIONS EVEN AND UNLABORED. GIVEN HS MEDS CRUSHED IN PUDDING. PT DRANK HONEY THICKENED LIQUID READILY. TRANSFERRED TO BED X 2 ASSIST. SLEPT IN BED ALL NOC, GIVEN INCONTINENT CARE @ 03:30, WILL CONINTINUE TO MONITOR Q 12 MINUTES FOR PATIENT SAFETY. BED IN LOW POSITION, BED ALARM SET.
[2018-12-08 04:31] VITALS: BP 165/75
--- NOTE | 2018-12-08 06:23 | NUR ---
SLEPT 7 HOURS OVERNIGHT
[2018-12-08 07:45] VITALS: BP 135/76
--- NOTE | 2018-12-08 14:59 | NUR ---
Date of Admission: 11/10/18 Date of Activity Therapy Assessment: 11/13/18 Activity Goal: Decrease wandering/Increase engagement Initial Goal: 1 Individual activity/day Weekly progress towards goal: Did not achieve goals Group participation level: Minimal Behaviors observed: Patient continues to show no behaviors. His level of alertness has decreased since last entry. Patient does not verbalize or show emotion when interacted with on a one to one basis. Plan: No change towards goal
[2018-12-08 23:00] VITALS: BP 162/108
--- NOTE | 2018-12-09 02:24 | NUR ---
ASSUMED CARE FROM DAY SHIFT PT UP IN RECLINCER CHAIR CALM COOPERATIVE, NON-VERBAL, PT DID TAKE MEDICATION WITH ICE CREAM. PT SLEPT FOR 2-3 HOURS THEN CONTINUE TO CLIMB OUT OF BED PT THEN PLACED IN RECLINCER AND MOVED TO DAY ROOM, PT AWAKE ,SITTING CALMY IN CHAIR. WILL TRY TO GET PT BACK TO BED.
[2018-12-09 06:34] VITALS: BP 164/90
--- NOTE | 2018-12-09 07:30 | NUR ---
Assumed care of patient this am from cage shift manager. Patient sitting in reclining chair resting quietly. Patient sometimes responds to yes and no questions but usually says very little. Patient neat and clean. Patient breath sounds clear and diminished in the bases. Bowel sounds present. Patient took medications crushed in applesauce.
[2018-12-09 08:00] VITALS: BP 139/78
[2018-12-09 09:12] VITALS: BP 139/78
[2018-12-10 01:04] VITALS: BP 154/86
--- NOTE | 2018-12-10 03:09 | NUR ---
ASSUMED CARE ON 12/09/18 @ 19:15. SITTING RECLINED IN DELTA CHAIR. WHEN ASKED QUESTIONS, WILL RESPOND WITH A SHORT ANSWER, USUALLY YES OR NO. TOOK HS MEDS CRUSHED IN APPLESAUCE, WITH HONEY THICK LIQUIDS, WHICH HE DRANK READILY. HAD A LARGE INCONTINENT BM THIS EVENING. PALLATIVE CARE STARTED 12/08. TRANSFERS FROM DELTA CHAIR TO WHEEL CHAIR TO BED X 2 ASSIST. ABLE TO STAND AND WALK A FEW FEED, HOWEVER DOES NOT PIVOT WELL. PRN TRAZADONE 25 MG GIVEN @ HS. PATIENT SLEPT WELL AT [facility]. BED IN LOW POSITION, BED ALARM SET, WILL CONTINUE TO MONITOR Q 12 MINUTES FOR PATIENT SAFETY.
--- NOTE | 2018-12-10 06:00 | NUR ---
slept 8 hours overnight
[2018-12-10 09:55] VITALS: BP 154/86
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
[2018-12-10 12:50] VITALS: BP 130/84
[2018-12-10 20:15] VITALS: BP 150/100
[2018-12-10 20:30] VITALS: BP 156/120
--- NOTE | 2018-12-11 02:01 | NUR ---
Care assumed of patient at 1915: Patient alert and oriented to person. Patient seated in w/c at start of shift at dining table. Ate 100% HS snack with total assist. Took HS medication crushed without difficulty. Patient had mumbled speech, occasional smile, calm and cooperative. Patient assisted to bed. Patient incontinent of bowel and bladder at that time. Suzi care completed, barrier cream applied. Patient woke up approximately 1 hour later and was incontinent of bowel and bladder again. Suzi care provided and barrier cream applied. Patient appeared restless at that time. Patient checked after approximately 45 minutes and he had been incontinent of a large amount of urine. Urine red in color at that time. Patient appeared more restless, holding self over in position, eyes wide open, facial grimacing. Suzi care completed and patient assisted to recliner for re-positioning. Patient had required max assist x2 with standing and transfers earlier in the evening. This time, patient stood up with stand by assist, initiated multiple steps, speaking clear words but speech was disorganized. Patient appeared to be in pain. Patient stated "yes" when asked if he was in pain but no other questions could be answered by patient. AMANDA Jean notified. Order obtained for straight cath and collection of UA. Catheter drained approximately 50cc, red colored urine, small red blood clots present. Patient provided PRN Tylenol PO. UA sent to lab. Patient is now sitting quietly in recliner in day room. Patient awake but is not as restless as previously. Patient did grab staff hands while catheter being placed but it is believed to be due to possible pain, not out of aggression.
[2018-12-11 02:23] LABS: URINE BILIRUBIN NEGATIVE (Negative); URINE BLOOD 3+ (Negative); URINE GLUCOSE-RANDOM* 3+ (Negative); URINE KETONES NEGATIVE (Negative); URINE LEUKOCYTES TRACE (Negative); URINE NITRITE POSITIVE (Negative); URINE PROTEIN (DIPSTICK) 2+ (Negative); URINE UROBILINOGEN 0.2 E.U./dl (0.2-1.0)
[2018-12-11 02:42] LABS: URINE COLOR RED
[2018-12-11 02:43] LABS: URINE CLARITY CLOUDY
[2018-12-11 02:48] LABS: CASTS None Seen /LPF (None Seen); MUCUS None Seen strn/LPF (None Seen); SQUAMOUS 0-3 Few /LPF (0-3); URINE WBC >25 Many /HPF (0-5)
[2018-12-11 02:49] LABS: BACTERIA 1-9 Few /HPF (None Seen); CRYSTALS None Seen /LPF (None Seen)
[2018-12-11 02:52] LABS: URINE RBC >20 Many /HPF (0-2)
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
[2018-12-11 08:00] VITALS: BP 125/82
[2018-12-11 10:02] VITALS: BP 125/82
[2018-12-11 20:30] VITALS: BP 145/90
--- NOTE | 2018-12-12 00:35 | NUR ---
Care assumed of patient at 1915: Patient alert to person. Patient seated at dining table in a dining chair at start of shift. Patient up ambulating without assistive devices. Patient appeared restless. Patient wandering the halls. No s/s of pain or discomfort. Upon assessment, patient had been incontinent of bowel and bladder. Patient taken to the bathroom where adrian care was provided and linens changed. Patient somewhat resistive but only required staff assist x1 for toileting needs. Patient did hold on to nurses wrists while completing cares. Patient had to be told over and over that he was being changed. Patient is slow to process and requires time to comprehend what is said. Patient forgetful and needs information re-iterated several times. Urine appears pink in color. Currently receives abx tx PO for the dx of UTI. Consulted with pharmacist that capsule of Cefdinir could be opened for administration. Pharmacist reported that it could be opened and mixed with food to administer. Patient took HS medication crushed without difficulty. Patient ate 100% HS snack with total assist. Patient did smile back at nurse several times. Occasional clear words were spoken, otherwise mumbled speech. Patient needed re-direction to stay out of other peers rooms. Patient did not like this and would grunt and hold nurses wrists/hands. Required re-direction to let go of nurse which he did without issue. No s/s of delusional or paranoia behaviors. No s/s of AH/VH. Gait unsteady at times, will hold on to grab rails while ambulating. Enjoyed sitting with other peers to eat snack. Patient did try to hug and kiss nurse hazel. Required re-direction and was given a high-five instead. Patient saw another nurse that he recognized and attempted to go see this nurse. Gave a good handshake and smiled. Nurse administered PRN Trazodone for insomnia due to his restless behaviors. Patient was able to be assisted to bed without difficulty and has been resting quietly since.
[2018-12-12 09:08] VITALS: BP 123/72
--- NOTE | 2018-12-12 09:58 | NUR ---
0715: Report rec from [facility] shift, care assumed. 1830-2008: To DR via recliner/w/c, alert, makes eye contact to name, no verbalization noted, staff feeds a.m. meal, appetite good, tolerates pureed diet and thickened liquids w/o difficulty. Attends 0900 therapy group, unable to participate due to cognitive impairment. Takes meds whole/crushed in pudding, tolerates well. Miralax held dur to loose stools 2-3/day, abd soft, bowel sounds active x4 quads.
--- NOTE | 2018-12-12 12:31 | NUR ---
JOHN received information from SW team stating that [facility] is considering admitting pt. JOHN contacted Brielle in admissions to give her information about pt. Based off the information given, Brielle suggested that pt go to the secure unit. She asked JOHN fax pt's H&P with his history of neurological concerns. JOHN faxed the document to the fax number given by Brielle of [phone]. JOHN team will continue to follow pt during his stay
[2018-12-12 20:00] VITALS: BP 121/86
--- NOTE | 2018-12-13 00:16 | NUR ---
Pt sitting up in jessi chair watching tv in day room. Pt compliant with meds and hs snack. Pt compliant with adl incontinence care. Pt not assisting with transfers while moving from chair to bed. New orders obtained for haldol and nystatin thrush on tongue.
--- NOTE | 2018-12-13 04:16 | NUR ---
Pt awakened twice and redirected to sleep.
--- NOTE | 2018-12-13 07:30 | NUR ---
Assumed care of patient this am. Patient in bed sleeping. Patient arouseable with verbal stimulation. Patient affect somewhat tense during assessment. Vital signs stable, breath sounds clear and diminished in the bases. Bowel sounds present. Patient moved to wheel chair from bed. Patient is able to stand with assistance. Patient on thickened liquids and takes medications crushed in pudding. Patient adherent with medications this am.
[2018-12-13 08:00] VITALS: BP 153/80
[2018-12-13 11:17] VITALS: BP 153/80
[2018-12-13 20:11] VITALS: BP 144/85
--- NOTE | 2018-12-13 23:21 | NUR ---
Care assumed of patient at 1915: Patient alert to person only. Primarily non-verbal. Patient will occasionally answer "yes" to questions or "no". Patient seated in recliner at start of shift. Patient ate 100% snack with total assist. Patient took HS medication crushed without difficulty. Patient incontinent of bladder. Patient assisted to bed with staff assist x2. Patient cooperative with transfer and staff assist with toileting needs. Suzi care completed, brief changed. Patient was able to fall asleep without difficulty. Patient cooperative with nursing assessment. Patient looks up and smiles at nurse. Holds hands with nurse and makes eye contact. No s/s of pain or discomfort. Urine pink tinged in color. Patient remains on abx tx for the dx of UTI. No s/s of adverse effects noted at this time. Patient has overall had a good evening.
[2018-12-14 09:11] VITALS: BP 103/76
[2018-12-14 13:00] VITALS: BP 103/76
--- NOTE | 2018-12-14 13:11 | NUR ---
ASSUMED CARE AT 0700 THIS MORNING. PT. WAS GOTTEN UP INTO A DELTA CHAIR. HE REQUIRES FEEDING AT MEALS. HE EATS ALL HE IS GIVEN. HE REMAINS ON NECTUR THICKENED LIQUIDS. HE RESTS WITH HIS EYES CLOSED MOST OF THE DAY. WHEN SPEAKING TO HIM, HE HAS NOT BEEN RESPONDING. HIS MEDICATIONS WERE CRUSHED AND PLACED IN PUDDING THIS MORNING. HE WAS COOPERATIVE WITH TAKING THESE. NO ACTING OUT BEHAVIORS NOTED.
--- NOTE | 2018-12-14 17:18 | NUR ---
Rachel Grant with [facility] came to visit pt to see if he would be a good candidate for any of the facilities she works with. Rachel contacted SW and said that there may be some options for pt. She will call SW and let her know. JOHN will continue to follow pt during his stay.
[2018-12-14 19:53] VITALS: BP 154/105
--- NOTE | 2018-12-14 21:44 | NUR ---
Care assumed of patient at 1915: Patient alert and oriented to person only. Patient seated in recliner at start of shift. Patient pleasant and cooperative. Patient smiled at nurse at times. Primarily blunted affect. Patient ate 100% HS snack with total assist. Took HS medication crushed without difficulty. Patient remains on abx tx for the dx of UTI. No s/s of adverse effects noted at this time. Patient received Nystatin oral for the dx of thrush. Patient incontinent of bladder. Urine yellow in color. patient required total dependence with adrian care and linen change. No aggression or agitation shown during ADL cares. No s/s of AH/VH, delusional or paranoia behaviors. No s/s of pain or discomfort observed. Patient has been resting quietly in bed.
--- NOTE | 2018-12-15 07:30 | NUR ---
Assumed care of patient this am. Patient sitting up in chair at table in activity area. Patient alert, but does not respond appropriately to questions. Patient is not grimacing this am and does not appear to be in any pain. Upon assessment, breath sounds clear and diminished in the bases, bowel sounds present. Heart tones--s1 and s2 present. Patient takes medications crushed in food. Patient calm, content and pleasant.
[2018-12-15 08:00] VITALS: BP 122/86
[2018-12-15 08:28] VITALS: BP 122/86
--- NOTE | 2018-12-15 14:33 | NUR ---
Date of Admission: 11/10/18 Date of Activity Therapy Assessment: 11/13/18 Activity Goal: Decrease wandering Initial Goal: 1 Group or 1:1 activity/day Weekly progress towards goal: On track Group participation level: Minimal Behaviors observed: Patient continues to show no aggressive behaviors. He has presented with a higher level of alertness this week and is present but passive in groups. Plan: No change towards goal. Continue to offer one to one activities daily.
--- NOTE | 2018-12-15 16:11 | NUR ---
SW team contacted [facility] to get an update on if they will accept pt in their locked unit. No answer. Lft msg for Brielle. SW team will continue to follow pt during his stay.
[2018-12-15 20:44] VITALS: BP 136/93
--- NOTE | 2018-12-16 04:09 | NUR ---
ASSESSMENT: PT REMAIN ALERT AND ORIENT TIMES ONE. UP IN THE DAY ROOM UNTIL APPROXIMATELY 2300. INCONT TO URINE, POSSIBLE DC TO [facility] PER RECENT TEAM MEETING. TOOK MEDS IN YOGART WELL. SLOW PROGRESS TOWARDS DC GOALS., WILL CONTINUE TO MONITOR.
--- NOTE | 2018-12-16 08:58 | NUR ---
0700: Report rec from noc shift, care assumed.
--- NOTE | 2018-12-16 12:18 | NUR ---
0700: Report rec from noc shift, care assumed. 0715: Pt sitting in w/c at table in DR, observed sliding downward in w/c, assisted by staff x4 to transfer to recliner for positioning/safety and comfort. Pt noted with minimal responsiveness, slightly diaphoretic, mouth dry, tongue appears dry and thick, resp even/shallow, rate 15bpm. VS=96/64, HR72, RR15, SAO2 on R/A 84%. Medications and code status reviewed, Dr. Cummings paged @ 0940 w/o returned call back. 0800: Milad Abarca NP here, update given, no new orders. 1115: Dr. Cummings here, update given, expresses that medications may need to be dc'd due to palliative care. This service writer advisor informed that all meds were held this a.m. due to lack of responsiveness. Pt ate 0% for a.m. meal, a.m. meds not given due to lack of ability to swallow. 1145: Pt transferred from recliner to bed, pt consumed 0% for noon meal, remains lethargic, responsive to painful stimuli only.
[2018-12-16 15:19] VITALS: BP 96/64
[2018-12-16 20:00] VITALS: BP 104/81
--- NOTE | 2018-12-16 23:36 | NUR ---
PT RESTING IN BED UPON ARRIVAL TO SHIFT. PT DID AWAKEN EYES DURING ASSESSMENT. PT COMPLIANT WTIH NYSTATIN TO RUSLAN. PT INCONTINENT AND NOT COMBATIVE WTIH ADL CARES. PT HAS FLAT AFFECT, POOR EYE CONTACT. 3 PERSON ASSIST WITH ADL CARES.
[2018-12-17 09:03] VITALS: BP 151/98
--- NOTE | 2018-12-17 09:37 | NUR ---
ATE APPROX 50 PERCENT OF BREAKFAST WITH FULL ASSIST-IS AWAKE AND ALERT-NO VERBAL RESPONSES BUT DOES NOD HEAD YES OR NO TO QUESTIONS ASKED. DENIES C/0 PAIN-NONVERBAL. REQUIRES ASSIST OF 2-3 TO TRANSFER OR PROVIDE PERICARE. DOES TURN SELF-REPOSITION SELF IN BED INDEPENDENTLY.
[2018-12-17 19:42] VITALS: BP 138/82
--- NOTE | 2018-12-18 00:58 | NUR ---
Care assumed of patient at 1915: Patient resting in bed at start of shift. Patient easily arousable. Patient confused and forgetful. Patient calm and cooperative with nursing assessment. Blunted affect. No s/s of pain or discomfort. Primarily non-verbal. Appears lethargic and drowsy this shift. Only scheduled medication was Nystatin swish and swallow. Patient appears to be too lethargic to be able to swallow any excess liquid that would be present on mouth swab. Medication not administered for safety. Patient not offered snack due to lethargy present. Patient turned q2 hours and PRN. Monitored for incontinence. No incontinent episodes observed at this time. No aggression or agitated observed. No s/s of AH/VH, delusional or paranoia behaviors observed. Patient appears to be comfortable. Remains on palliative care. Resting quietly at this time.
[2018-12-18 08:09] VITALS: BP 135/91
--- NOTE | 2018-12-18 18:40 | NUR ---
0715: Report rec from noc shift, care assumed. 1840-2180: Pt resting in bed, supine position, eyes open to blank stare, eyes glassy appearance, eyes not tracking, pupils sluggish. Oral mucosa dry/red, tongue thick and dry. Moves legs for no specific meaning, noted pt figiting with fingers. Pt extreme aspiration risk, no fluids or food given due to inability to swallow, and lack of gag reflux. Pt non-verbal, frequent oral given due mouth breathing. Lung sepulveda coarse bilat, resp even/shallow, no cough noted. Has occas. moments of increased movement, but nothing defined. 1800: Comfort meds ordered per Dr. Lamb. Dtr called to let staff know she will be here to visit around 1900. Report to oncoming shift.
--- NOTE | 2018-12-18 23:22 | NUR ---
PT SLEEPING IN BED UPON ARRIVAL TO SHIFT. PT CALM WITH RESPIRATIONS, PT COMPLIANT WITH ADL INCONTINENCE CARE, NO NONVERBAL OR VERBAL RESPONSES RE PAIN. PTS DAUGHTER VISITED AND SHE FED HIM YOGURT AND JUICE. PT HAS EYES OPEN, BUT NO VERBAL RESPONSE. COMPLIANT WITH ORAL CARE AND LIP CARE.
--- NOTE | 2018-12-19 05:15 | NUR ---
called for update. pt noted to be hallucinating while laying in bed, looking around and at ceiling. not resistive to incontinence cares.
[2018-12-19 09:04] VITALS: BP 162/83
--- NOTE | 2018-12-19 12:48 | NUR ---
PATIENT IN BED WITH EYE OPEN, STEARING AT THE CEILING WHEN CARE ASSUMED, REMAIN NON-VERBAL. LUNGS CLEAR TO AUSCULTATION IN ALL LOBE, RESPIRATION EVEN, UNLABORED, NO SOA/CYANONIS NOTED. PATIENT GRIMICING IN PAIN WHEN INCONTINENT CARE PERFORMED BY STAFF, PRN ROXANOL 0.25ML GIVEN SL PER ORDER. PATIENT TRUNED, AND REPOSITIONED. FAMILY AT BED SIDE, NO SIGN OF ACUTE DISTRESS NOTED AT THIS TIME, WILL CONTINUE TO MONITOR.
--- NOTE | 2018-12-19 17:18 | NUR ---
[facility]'s HH came to evaluate pt, and they determined he is not quite ready for hospice house due to comfort care not having began. Pt's Mariana and family came to visit pt. Mariana was weepy and having difficulty accepting her is near . PRINTS AND DRAWINGS CURATOR talked with Mariana about hospice and she is okay with the idea of it. SW explained that her was not ready for hospice house yet. [facility] was on site; the other SW explained to them pt's case and they were interested in more information. JOHN and Mariana talked with them and initially she was okay with the idea of pt going to their facility because they worked closely with a hospice facility. However, she did not want to make a decision until next week. SW and psych doctor talked with Mariana and the psych doctor explained how dire pt's case is. After that meeting it was decided that pt will stay on the floor and pass away when time. Mariana believes the care he receives on the floor is sufficient and is comfortable with the unit staff caring for him. JOHN team contacted pt's former nursing facility in search of DPOA paperwork.However, they received a response that Mariana has the original document. SW provided an update to [facility] and [facility]. SW team will continue to follow pt during his stay.
[2018-12-19 20:04] VITALS: BP 130/86
--- NOTE | 2018-12-19 21:45 | NUR ---
Care assumed of patient at 1914: Patient laying in bed at start of shift. Patient moaning, labored breathing, facial grimacing present. Patient provided Roxanol 20mg po at 1924. Heart rate 120, Resp 28. Patient re-assessed at 2000. Patient continuing to moan, heart rate 116, Resp 24. Patient provided Roxanol 20mg po at 2025. Patient reassessed at 2109. Heart rate 120, Resp 30. Patient responsive to voice, grimacing present, moaning when touched. Patient re-positioned, no incontinent episodes noted, mouth swabbed with thickened water, mouth moisturizer applied to lips. Patient does not feel cold or hot to the touch. Room is at a comfortable temperature level. Wheezing and diminished lung sounds present to all lobes. Patient provided Roxanol 20mg po and Ativan Intensol 0.5mg po at 2125. Patient will look around room as if he is looking for someone. Nurse sat with patient for several minutes in an attempt to soothe him and hold his hand. Patient remains restless at this time. Will call and update of current status. No agression or agitation observed at this time.
--- NOTE | 2018-12-20 08:08 | HC ---
[facility] [place] [address] [place] [address] CONSULTATION Name: KEISHA ULRICH Christie Room #: 528B-B [facility] IN M.R.#: [id number] Admission: 11/10/18 Attend Phys: sEtrada Lamb DO Discharge: 12/20/18 Date of : 57 Report #: [id number] THIS REPORT FOR: //name// CC: Estrada Lamb Physician staff DATE OF SERVICE: 12/01/2018 INTRODUCTION: The patient is a 63-year-old male who is being seen on the Behavioral Health floor at [facility] for a general foot care. The patient has a history of elongated, thickened and sensitive toenails that have been difficult to trim. He has apparently received no foot care for several months. PAST MEDICAL HISTORY: His past medical history with regard to this consultation is otherwise unremarkable. PHYSICAL EXAMINATION: Pedal exam, dorsalis pedis, posterior tibial pulses graded at 2/4. Capillary refill time is within normal limits. Neurologically, the patient appears to be intact to sensory stimulation; however, is somewhat sedated and does not respond to questioning. The patient's nails are thickened, elongated, show clinical evidence of onychomycosis in varying degrees. There are no acute findings. He does demonstrate bilateral sub-fifth metatarsal head calluses, which do not demonstrate any changes suggestive of pre-ulceration or ulceration. Remainder of his skin exam is normal. IMPRESSION: 1. Onychodystrophy, associated with onychomycosis, bilateral feet. 2. Mechanically-induced calluses, bilateral feet. PLAN: The patient's nails and calluses were debrided. There was no additional pathology noted at the time of treatment. It has been a pleasure having the opportunity of caring for the patient. I would be pleased to follow up with him upon request. <ELECTRONICALLY SIGNED> By: Donnell Oates DPM 12/20/18 0808 [id number] 0229 Donnell Oates DPM /nt
--- NOTE | 2018-12-21 19:42 | DEA ---
[facility] [place] [address] [place] [address] SUMMARY Name: KEISHA ULRICH Room #: 528B-B [facility] IN M.R.#: [id number] Admission: 11/10/18 Attend Phys: Estrada Lamb DO Discharge: 12/20/18 Date of : 57 Report #: [id number] THIS REPORT FOR: //name// CC: Estrada Lamb Physician staff DATE OF SERVICE: 12/20/2018 The patient on a geriatric psychiatry unit. ATTENDING PHYSICIAN: Estrada Lamb DO. DIRECTOR OF COMMUNITY SERVICES: Boyd Pollard MD TIME OF PRONOUNCED BY THE HOSPITALIST NURSE PRACTITIONER: At 0110 hours, 01:10 a.m., on 12/20/2018. The patient, therefore, has no discharge medications. He was taken down to the [facility] [place], [place]. REASON FOR ADMISSION: He was sent by [facility], [facility]. They refused to take him back. He was combative and violent. He was admitted to the Geriatric Psychiatry Unit. HOSPITAL COURSE: In the initial days, the patient did pose management difficulty. The patient was treated with a chlorpromazine regimen. We had an episode of hypotension. This was then discontinued. He was left on Depakote. He became very sedated and not moving in and out of his chair and that was discontinued. We did have some brief rebound agitation and the patient then once again settled into a fairly sedentary and a somnolent kind of state. I had made some efforts to place him in a hospice house. He was declined for that. I did speak with his , Caty, on the phone and in person. We were able to get the family present a day or so before . Last laboratories before discharge on 12/06/2018 showed a white count of 12.6, H and H 13.0 and 43.5, and platelet count 179. Chemistry last one was 12/05/2018, abnormalities, sodium 148, chloride 109, bicarbonate 33, anion gap 6, BUN 30, and glucose was 356. Urinalysis, there was no clear infection despite some abnormalities in several urinalyses. Depakote level has been as high as 97. Ammonia level had been checked during the therapy, which was less than 10. During the admission, the risks, benefits, and alternatives to future care were discussed. did not want invasive measures including the IV fluids, PEG tubes, etc. The patient was made no code. DISCHARGE DIAGNOSES: Major neurocognitive disorder, likely due to multiple [facility] [address] [place] [address] SUMMARY Name: KEISHA ULRICH Room #: 528B-B [facility] IN [facility].#: [id number] Admission: 11/10/18 Attend Phys: Estrada Lamb DO Discharge: 12/20/18 Date of : 57 Report #: [id number] etiologies with behavioral disturbance, which was a terminal illness and cause of . <ELECTRONICALLY SIGNED> By: Estrada Lamb DO 12/21/18 1942 0904 1235 Estrada Lamb DO /nt
== END 2018-12-20 01:10 | DRG 884 ==
LOC: SBH 16:34
PROVIDERS: Internal Medicine; Nurse Practitioner Acute Care; ADMIT Psychiatry & Neurology Psychiatry
DX: F01.51 Vascular dementia, unspecified severity, with behavioral disturbance (principal); G92 Toxic encephalopathy; F03.91 Unspecified dementia, unspecified severity, with behavioral disturbance; I69.354 Hemiplegia and hemiparesis following cerebral infarction affecting left non-dominant side; L60.3 Nail dystrophy; B35.1 Tinea unguium; L84 Corns and callosities; E11.22 Type 2 diabetes mellitus with diabetic chronic kidney disease; I12.9 Hypertensive chronic kidney disease with stage 1 through stage 4 chronic kidney disease, or unspecified chronic kidney disease; N18.9 Chronic kidney disease, unspecified; E78.5 Hyperlipidemia, unspecified; K59.09 Other constipation; E55.9 Vitamin D deficiency, unspecified; E53.8 Deficiency of other specified B group vitamins; Z66 Do not resuscitate; F41.9 Anxiety disorder, unspecified; F32.9 Major depressive disorder, single episode, unspecified; D69.6 Thrombocytopenia, unspecified; I95.9 Hypotension, unspecified; Z79.899 Other long term (current) drug therapy; Z79.82 Long term (current) use of aspirin
CPT/HCPCS: 10880